=== PATIENT | male | born 1940 | race Caucasian/White ===

== ENCOUNTER 2021-06-01 10:20 | Day surgery (SDC) | payer OTHER ==
[2021-05-30 14:14] LABS: Potassium 4.9 mmol/L (3.5-5.1)
[2021-05-30 14:20] LABS: Absolute Lymphocytes (CBC) 15.2 K/uL (0.7-4.9); Hematocrit 31.7 % (39.6-49.0); Lymphocytes % 69.3 % (15.3-44.8); MPV 8.3 fL (7.6-11.3)
[2021-05-30 14:44] LABS: Blood Morphology Comment NOT SEEN (NOT SEEN); Platelet Estimate ADEQ
[2021-06-01] MEDS ORDERED: CEFAZOLIN SODIUM 1 GM/VIAL ONE (10:41)
[2021-06-01] MEDS ORDERED: NA CHLORIDE 0.9% 50 ML ONE (10:41)
[2021-06-01] MEDS ORDERED: NA CHLORIDE 0.9% 1,000 ML ONE (10:41)
[2021-06-01] MEDS ORDERED: BUPIVACAINE 0.25% PF 10 ML VIAL ONE (10:45)
[2021-06-01] MEDS ORDERED: CEFAZOLIN/SWI 2gm 2 GM/20 ML SYR ONE (10:58)
[2021-06-01] MEDS ORDERED: LIDOCAINE 1% W/EPI 1:100,000 10 ML VIAL ONE ×2 (11:08→12:09)
[2021-06-01] MEDS ORDERED: propofoL 200 MG/20 ML VIAL IV ONE ×3 (11:32→12:03)
[2021-06-01] MEDS ORDERED: MIDAZOLAM HCL 2 MG/2 ML INJ ONE (11:32)
[2021-06-01] MEDS ORDERED: LIDOCAINE 1% MPF 5 ML VIAL ONE (11:32)
[2021-06-01] MEDS ORDERED: FENTANYL CITR 100 MCG/2 ML ONE (11:32)
--- NOTE | 2021-06-01 12:40 | P.OP ---
Preoperative diagnosis: LEFT Forearm Skin Lesions x 2, RIGHT scalp, RIGHT Face Skin Lesions Postoperative diagnosis: LEFT Forearm Skin Lesions x 2, RIGHT scalp, RIGHT Face Skin Lesions Primary procedure: Wide Excision of LEFT Forearm Skin Lesions x 2, Secondary procedure: Shave biopsy of RIGHT scalp, RIGHT Face Skin Lesions Anesthesia: GETA + Local Estimated blood loss: < 10cc Specimen: LEFT forearm skin lesion x 2, RIGHT scalp, face skin lesions Findings: ~1.2cm + 1.0 cm L forearm skin lesion, 0.8cm facial, scalp skin lesion Complications: None Transferred to: Recovery Room Condition: Good
[2021-06-01 13:05] VITALS: O2SAT 100
[2021-06-01] MEDS ORDERED: HYDRALAZINE HCL 20 MG/ML VIAL ONE (13:10)
[2021-06-01 13:41] VITALS: BP 178/69; TEMP 97
--- NOTE | 2021-06-02 00:34 | OP ---
Date of Procedure: 06/01/2021 Surgeon: Crow Curry MD, Preoperative Diagnoses: Left forearm skin lesions x2, right scalp and right facial skin lesions. Postoperative Diagnoses: Left forearm skin lesions x2, right scalp and right facial skin lesions. Procedures Performed: 1.Wide local excision of left forearm skin lesions x2. 2.Shave biopsy of right scalp and right facial skin lesion, lateral to right canthus. Anesthesia: General endotracheal with local with 1% lidocaine with epinephrine. Estimated Blood Loss: Less than 10 cc. Specimens: Left forearm skin lesion x2, right scalp and right facial skin lesions. Findings: Approximately 1.2 cm left proximal forearm skin lesion, 1.0 cm left forearm distal skin le vivek, 0.8 cm facial and scalp skin lesions. Complications: None. Disposition: The patient was transferred to recovery room in good condition. Procedure In Detail: After informed consent was obtained, the patient was brought to the operating r oom and prepped and draped in the usual sterile fashion. After adequate anesthesia was achieved, an ellipse of skin was taken of greater than 1 cm circumferential margin around proximal and distal skin lesion and was marked with marking pen. A 15 blade was then used to dissect the proximal tissue fir st, circumferentially down to subcutaneous tissues. Electrocautery was used to dissect the planes an d achieve hemostasis. A marking stitch short superior and long lateral was placed on the proximal le ft forearm skin lesion. The skin lesion was then ligated from the underlying adipose tissue and sent off for pathologic examination. Hemostasis was achieved with electrocautery. At this point, the ar ea was copiously irrigated and closed with interrupted vertical mattress sutures with good apposition of the tissues with minimal tension. At this point, I made the similar elliptical incision around t he distal forearm, which was approximately 1 cm to 1.5 cm away from the previous proximal skin lesion leaving a slight dog-ear between them as a skin bridge. I dissected circumferentially down through subcutaneous tissues with a 15 blade. At this point, I placed a marking stitch short superior and lo ng lateral on the distal left forearm skin lesion as well. I then ligated the skin specimen from the underlying adipose tissue and sent off for pathologic examination. Hemostasis was once again achiev ed in the area. The area was copiously irrigated and closed with interrupted vertical mattress sutur es after undermining in a similar fashion at the proximal skin lesion with a minimal tension closure. At this point, sterile dressing was placed over top. I then turned my attention to the right scalp lesion and anesthetized it with 1% lidocaine and used a shave biopsy blade/dermal blade to shave thi s area and sent it off, which is approximately less than a cm in size, for pathologic examination. H emostasis was achieved with touch electrocautery on low setting and a sterile dressing placed over to p. I then turned my attention to the skin distal to the lateral canthus, approximately 1 cm distal t o th lateral canthus. A wheal was raised at this point and also with 1% lidocaine, a shave biopsy wa s performed into the dermal tissue only. At this point, this tissue was sent off for pathologic exam ination. It was also approximately less than 1 cm skin lesion. Hemostasis was achieved with electro cautery, once again by just touch electrocautery. The area was cleansed once again. A sterile dress ing was placed on top. The patient tolerated the procedure without any complication and transferred to PACU in good condition. All counts were correct at the end of the case. MARIA LUZ/ALISA Voice ID: [id number] Report ID: [id number]
== END 2021-06-01 14:23 | disposition home or self-care (01) ==
LOC: OR 10:20
PROVIDERS: ATTEND Surgery
PROC: 0JBH0ZZ Excision of Left Lower Arm Subcutaneous Tissue and Fascia, Open Approach (ICD-10-PCS; 2021-06-01)
PROC: 0JBH0ZZ Excision of Left Lower Arm Subcutaneous Tissue and Fascia, Open Approach (ICD-10-PCS; 2021-06-01)
PROC: 0JB10ZZ Excision of Face Subcutaneous Tissue and Fascia, Open Approach (ICD-10-PCS; principal; 2021-06-01 11:45)
PROC: 0JB00ZZ Excision of Scalp Subcutaneous Tissue and Fascia, Open Approach (ICD-10-PCS; 2021-06-01 11:45)
DX: D04.4 Carcinoma in situ of skin of scalp and neck (principal); C44.619 Basal cell carcinoma of skin of left upper limb, including shoulder; C44.310 Basal cell carcinoma of skin of unspecified parts of face; Z20.822 Contact with and (suspected) exposure to COVID-19
CPT/HCPCS: 85025; 80048; 36415; 82947 ×2; 88305; 99281; 11641; 11622; 11604; 11606; U0003; J0360; J2704 ×3; J2250; J3010; J0690; J7030

== ENCOUNTER 2021-06-01 19:55 | Emergency (ER) | payer OTHER ==
--- NOTE | 2021-06-01 20:47 | ER ---
Nurse's Notes [facility] Name: Boubacar Landin Age: 80 yrs Sex: Male : 1940 Arrival Date: 06/01/2021 Time: 19:57 Bed 15 Private MD: Diagnosis: Postop wound check Presentation: 06/01 20:07 Chief complaint: Patient states: States had a same day surgery today to remove some ll3 skin spots for biopsy, states dressing slid down arm and came off, want a new dressing applied. Coronavirus screen: Vaccine status: Patient reports receiving the 2nd dose of the covid vaccine. Ebola Screen: No symptoms or risks identified at this time. Initial Sepsis Screen: Does the patient meet any 2 criteria? No. Patient's initial sepsis screen is negative. Does the patient have a suspected source of infection? No. Patient's initial sepsis screen is negative. Risk Assessment: Do you want to hurt yourself or someone else? Patient reports no desire to harm self or others. Onset of symptoms was June 01, 2021 at 19:40. 20:07 Method Of Arrival: Ambulatory ll3 20:07 Acuity: HOWARD 4 ll3 Triage Assessment: 20:10 General: Appears uncomfortable, Behavior is calm, cooperative. Pain: Complains of pain ll3 in dorsal aspect of left forearm. Neuro: Level of Consciousness is awake, alert, obeys commands, Oriented to person, place, time, situation. Cardiovascular: Patient's skin is warm and dry. Respiratory: Respiratory effort is even, unlabored, Respiratory pattern is regular, symmetrical. Derm: Wound noted dorsal aspect of left forearm, forehead. Historical: - Allergies: 20:10 No Known Allergies; ll3 - PMHx: 20:10 Hypertensive disorder; Diabetes mellitus; Hypercholesterolemia; ll3 - PSHx: 20:10 Tonsillectomy; Coronary artery bypass graft; ll3 - Immunization history:: Client reports receiving the 2nd dose of the Covid vaccine. - Social history:: Smoking status: Patient/guardian denies using tobacco. Screenin:37 Abuse screen: Denies threats or abuse. Tuberculosis screening: No symptoms or risk sv1 factors identified. Fall Risk None identified. No fall in past 12 months (0 pts). No secondary diagnosis (0 pts). No IV (0 pts). Ambulatory Aid- Gait- Normal/Bed Rest/Wheelchair (0 pts) Mental Status- Oriented to own ability (0 pts). 20:40 Nutritional screening: No deficits noted. sv1 Assessment: 20:40 Reassessment: The patient has a biopsy wound that the dressing fell off. No active sv1 bleeding or drainage. No pain. A non adhering dressing and cynthia wrap was applied as per Provider order.. Vital Signs: 20:07 BP 195 / 80; Pulse 73; Resp 17; Temp 98.3(TE); Pulse Ox 100% on R/A; Weight 77.11 kg ll3 (R); Height 5 ft. 11 in. (180.34 cm) (R); Pain 3/10; 20:37 BP 180 / 80 RA Sitting (auto/reg); Pulse 72 MON; Resp 16 S; Temp 98.1(O); Pulse Ox 100% sv1 on R/A; Pain 0/10; 20:07 Body Mass Index 23.71 (77.11 kg, 180.34 cm) ll3 ED Course: 19:57 Patient arrived in ED. jj6 19:58 Bayron Larson MD is Attending Physician. kdr 20:10 Triage completed. ll3 20:10 Arm band placed on. ll3 20:37 Genaro Orellana, RN is Primary Nurse. sv1 20:37 Bed in low position. Call light in reach. Side rails up X 1. sv1 20:37 No provider procedures requiring assistance completed. Patient did not have IV access sv1 during this emergency room visit. Administered Medications: No medications were administered Outcome: 20:47 Discharge ordered by . kdr 20:55 Discharged to home sv1 20:55 Condition: good 20:55 Discharge instructions given to patient. 20:56 Patient left the ED. sv1 Signatures: Bayron Larson MD MD kdr Alejandra Amador j6 Tuyet Black RN RN 3 Genaro Orellana, ANA LUISA RN sv1 Corrections: (The following items were deleted from the chart) 20:13 20:10 PSHx: Coronary artery bypass graft; ll3 ll3
--- NOTE | 2021-06-01 20:47 | EDPHYS ---
Physician Documentation [facility] Name: Boubacar Landin Age: 80 yrs Sex: Male : 1940 Arrival Date: 06/01/2021 Time: 19:57 Bed 15 Private MD: ED Physician Bayron Larson HPI: 06/01 20:27 This 80 yrs old Male presents to ER via Ambulatory with complaints of Post Surgical kdr Bleeding, Post Surgical Pain. 20:27 Had 2 cancerous growth removed from his left forearm earlier today. This evening he had kdr the bandage loosening and there was some post procedure bleeding which is currently stopped. On the dressing removed, there did not appear to be significant amount of postop bleeding. Patient did not appear in any acute distress and the bleeding was controlled the wound was cleaned and redressed. Patient was discharged in good condition. Dr. Curry was notified of the patient's visit to the ED. Onset: The symptoms/episode began/occurred just prior to arrival. Severity of symptoms: At their worst the symptoms were mild in the emergency department the symptoms are unchanged. The patient has not experienced similar symptoms in the past. Patient had [address] Curry earlier today. Historical: - Allergies: 20:10 No Known Allergies; ll3 - PMHx: 20:10 Hypertensive disorder; Diabetes mellitus; Hypercholesterolemia; ll3 - PSHx: 20:10 Tonsillectomy; Coronary artery bypass graft; ll3 - Immunization history:: Client reports receiving the 2nd dose of the Covid vaccine. - Social history:: Smoking status: Patient/guardian denies using tobacco. ROS: 20:27 Constitutional: Negative for fever, chills, and weight loss. kdr 20:27 MS/extremity: Positive for Patient had a long incision over the left proximal lateral forearm.. Exam: 20:27 Musculoskeletal/extremity: As noted above there is a proximate 10 to 12 cm longitudinal kdr laceration with interrupted suture closure on the proximal lateral forearm. Bleeding is controlled. I was unable to express any additional blood or other fluids from the wounds. Patient tolerated this well. The wounds were redressed and an Benjie wrap was applied. Patient tolerated well. I notify Dr. Curry of the patient's visit to the ED and that he was going to be discharged with follow-up. Patient otherwise was stable. 23:55 Constitutional: This is a well developed, well nourished patient who is awake, alert, kdr and in no acute distress. Vital Signs: 20:07 BP 195 / 80; Pulse 73; Resp 17; Temp 98.3(TE); Pulse Ox 100% on R/A; Weight 77.11 kg ll3 (R); Height 5 ft. 11 in. (180.34 cm) (R); Pain 3/10; 20:37 BP 180 / 80 RA Sitting (auto/reg); Pulse 72 MON; Resp 16 S; Temp 98.1(O); Pulse Ox 100% sv1 on R/A; Pain 0/10; 20:07 Body Mass Index 23.71 (77.11 kg, 180.34 cm) ll3 MDM: 20:27 Data reviewed: vital signs, nurses notes. Counseling: I had a detailed discussion with kdr the patient and/or guardian regarding: the historical points, exam findings, and any diagnostic results supporting the discharge/admit diagnosis, the need for outpatient follow up. Physician consultation: Crow Curry MD regarding consult, patient's condition, outpatient follow-up, and will see patient in office, next week. 20:47 Patient medically screened. kdr Administered Medications: No medications were administered Disposition Summary: 06/01/21 20:47 Discharge Ordered Location: Home kdr Problem: new kdr Symptoms: have improved kdr Condition: Stable kdr Diagnosis - Postop wound check kdr Followup: kdr - With: Private Physician - When: 2 - 3 days - Reason: Wound Recheck, If symptoms return, Further diagnostic work-up, Recheck today's complaints, Continuance of care, Re-evaluation by your physician Discharge Instructions: - Discharge Summary Sheet kdr - How to Change Your Wound Dressing, [id number] kdr Forms: - Medication Reconciliation Form kdr - Thank You Letter kdr Signatures: Bayron Larson MD MD kdr Tuyet Black RN RN ll3 Corrections: (The following items were deleted from the chart) 20:13 20:10 PSHx: Coronary artery bypass graft; ll3 ll3
[2021-06-01 21:16] VITALS: O2SAT 100
[2021-06-01 21:18] VITALS: BP 180/80; TEMP 98.1
== END 2021-06-01 20:56 | disposition home or self-care (01) ==
LOC: ER 19:55
DX: Z48.01 Encounter for change or removal of surgical wound dressing (principal)
CPT/HCPCS: 99281

== ENCOUNTER 2021-07-02 07:57 | Day surgery (SDC) | payer OTHER ==
[2021-06-20 14:31] LABS: Absolute Lymphocytes (CBC) 14.8 K/uL (0.7-4.9); Hematocrit 26.4 % (39.6-49.0); MPV 7.8 fL (7.6-11.3); RBC Red Blood Cell Count 2.63 M/uL (4.33-5.43)
[2021-06-20 14:54] LABS: Potassium 4.2 mmol/L (3.5-5.1)
[2021-06-20 21:43] LABS: Blood Morphology Comment NOT SEEN (NOT SEEN); Platelet Estimate ADEQ; Smudge Cells PRESENT
[2021-07-02] MEDS ORDERED: LIDOCAINE 2% MPF 5 ML VIAL ONE (08:01)
[2021-07-02] MEDS ORDERED: FENTANYL CITR 100 MCG/2 ML ONE (08:01)
[2021-07-02] MEDS ORDERED: propofoL 200 MG/20 ML VIAL IV ONE (08:01)
[2021-07-02] MEDS ORDERED: MIDAZOLAM HCL 2 MG/2 ML INJ ONE (08:01)
[2021-07-02] MEDS ORDERED: ONDANSETRON 4 MG/2 ML VIAL ONE (08:06)
[2021-07-02] MEDS ORDERED: NA CHLORIDE 0.9% 1,000 ML ONE (08:30)
[2021-07-02] MEDS ORDERED: CEFAZOLIN/SWI 2gm 2 GM/20 ML SYR ONE (08:31)
[2021-07-02] MEDS ORDERED: BUPIVACAINE 0.25% PF 10 ML VIAL ONE (08:58)
[2021-07-02] MEDS ORDERED: LIDOCAINE 1% W/EPI 1:100,000 MDV 50 ML VIAL ONE (08:58)
[2021-07-02] MEDS ORDERED: LIDOCAINE 1% MPF 30 ML VIAL ONE (08:58)
--- NOTE | 2021-07-02 10:14 | P.OP ---
Preoperative diagnosis: LEFT Forearm Skin Cancer, Scalp Skin Cancer Postoperative diagnosis: LEFT Forearm Skin Cancer, Scalp Skin Cancer Primary procedure: Wide Re-Excision of LEFT forearm skin cancer Secondary procedure: Wide Re-Excision of RIGHT scalp skin lesion Anesthesia: IV Sedation + Local Estimated blood loss: < 5cc Specimen: Scalp skin lesion, proximal skin lesion, distal skin lesion Findings: skin cancer Complications: None Transferred to: Recovery Room Condition: Good
[2021-07-02 11:28] VITALS: BP 169/91; TEMP 97.8; O2SAT 98
--- NOTE | 2021-07-02 13:19 | OP ---
Date of Procedure: 07/02/2021 Surgeon: Crow Curry MD, Preoperative Diagnoses: 1.Left forearm skin cancer. 2.Scalp skin cancer. Postoperative Diagnoses: 1.Left forearm skin cancer. 2.Scalp skin cancer. Procedures Performed: 1.Wide re-excision of left forearm skin cancer. 2.Wide re-excision of right scalp skin lesion. Anesthesia: IV sedation plus local with 1% lidocaine with epinephrine. Estimated Blood Loss: Less than 5 cc. Specimen: Scalp skin lesion and proximal skin lesion as well as proximal forearm skin lesion and dis jose forearm skin lesion. Findings: Consistent with skin cancer. Complications: None. Disposition: The patient was transferred to recovery room in good condition. Procedure In Detail: After informed consent was obtained, the patient was brought to the operating r oom, prepped and draped in the usual sterile fashion after adequate anesthesia was achieved. I addre ssed the area on the right scalp. First, I took out approximately 0.5 cm ellipse of skin around an a bnormal appearing previously biopsied area using a scalpel down through subcutaneous tissues. I enco untered a scalp arterial vessel, which was ligated with suture which was 3-0 Vicryl suture in a simpl e [id number]-rl-pautt ligature with good hemostasis at this point. The area was copiously irrigated and then closed using interrupted 3-0 nylon suture and a sterile dressing placed over top. Good hemostas is was achieved. I then turned my attention to the left forearm skin lesion. There was a proximal s egment and distal segment, both together encompassing approximately 8 cm x 2 cm. I have 2 elliptical incisions around this area to demarcate the previous proximal and distal skin lesions. There were s ome abnormal skin appearing lesions within the distal aspect as well as the proximal aspect. As such , I removed these with after appropriately anesthetizing the skin with 1% lidocaine down to subcutane ous tissues. I removed the entire thickness of dermis down to subcutaneous fat using a combination o f sharp dissection and electrocautery. Both of these skin lesions were marked as a proximal and dist al with short stitch proximal and long stitch lateral, and these 2 specimen were sent off for patholo gic examination. The wound was then copiously irrigated and hemostasis was achieved with electrocaut damir. No suture ligature was required. After the area was cleansed, a sterile damp to dry dressing w as placed and the wound would remain open and we will plan for granulation and likely skin grafting i n the future per our previous discussion with the patient as the patient did not have significant cecilio unt of tissues for flap closure at this time. After the wound was wrapped appropriately, a sterile d ressing was placed over the top with Kerlix and Benjie wrap. The patient tolerated the procedure well w ithout evidence of complication and transferred to PACU in good condition. All counts were correct a t the end of the case. MARIA LUZ/ALISA Voice ID: [id number] Report ID: [id number]
== END 2021-07-02 11:20 | disposition home or self-care (01) ==
LOC: OR 07:57
PROVIDERS: ATTEND Surgery
PROC: 0JB00ZZ Excision of Scalp Subcutaneous Tissue and Fascia, Open Approach (ICD-10-PCS; 2021-07-02)
PROC: 0JBH0ZZ Excision of Left Lower Arm Subcutaneous Tissue and Fascia, Open Approach (ICD-10-PCS; principal; 2021-07-02 09:15)
DX: C44.619 Basal cell carcinoma of skin of left upper limb, including shoulder (principal); C44.41 Basal cell carcinoma of skin of scalp and neck; Z20.822 Contact with and (suspected) exposure to COVID-19
CPT/HCPCS: 85025; 80048; 36415; 82947 ×2; 88305; 11606; 11622; 11604; U0003 ×2; J2704; J2250; J3010; J0690; J7030; J2405

== ENCOUNTER 2022-01-31 09:51 | Day surgery (SDC) | payer OTHER ==
[2022-01-31 10:45] LABS: Hematocrit 23.3 % (39.6-49.0)
[2022-01-31] MEDS ORDERED: EPOETIN ALFA-EPBX 10,000 UNIT/ML VIAL ONE (10:52)
[2022-01-31 12:30] VITALS: BP 175/65; TEMP 97.5; O2SAT 18; BMI 25.1
== END 2022-01-31 11:00 | disposition home or self-care (01) ==
LOC: DS 09:51
PROVIDERS: ATTEND Internal Medicine Nephrology
DX: N18.4 Chronic kidney disease, stage 4 (severe) (principal); D63.1 Anemia in chronic kidney disease
CPT/HCPCS: 36415; 85018; 85014; 96372; Q5106

== ENCOUNTER 2022-02-28 09:22 | Day surgery (SDC) | payer OTHER ==
[2022-02-28 09:42] VITALS: BP 170/68; TEMP 98.6; O2SAT 100; BMI 25.1
[2022-02-28 09:55] LABS: Hematocrit 26.2 % (39.6-49.0)
[2022-02-28] MEDS ORDERED: EPOETIN ALFA-EPBX 10,000 UNIT/ML VIAL ONE (10:04)
== END 2022-02-28 10:25 | disposition home or self-care (01) ==
LOC: DS 09:22
PROVIDERS: ATTEND Internal Medicine Nephrology
DX: N18.4 Chronic kidney disease, stage 4 (severe) (principal); D63.1 Anemia in chronic kidney disease
CPT/HCPCS: 36415; 85018; 85014; 96372; Q5106

== ENCOUNTER 2022-03-28 09:56 | Day surgery (SDC) | payer OTHER ==
[2022-03-28 10:28] VITALS: BP 168/55; TEMP 98.1; O2SAT 100; BMI 23.7
[2022-03-28 11:12] LABS: Hematocrit 25.6 % (39.6-49.0)
[2022-03-28] MEDS ORDERED: EPOETIN ALFA-EPBX 10,000 UNIT/ML VIAL ONE (11:20)
== END 2022-03-28 11:29 | disposition home or self-care (01) ==
LOC: DS 09:56
PROVIDERS: ATTEND Internal Medicine Nephrology
DX: N18.4 Chronic kidney disease, stage 4 (severe) (principal); D63.1 Anemia in chronic kidney disease
CPT/HCPCS: 36415; 85018; 85014; 96372; Q5106

== ENCOUNTER 2022-04-25 10:04 | Day surgery (SDC) | payer OTHER ==
[2022-04-25 10:38] LABS: Hematocrit 26.7 % (39.6-49.0)
[2022-04-25] MEDS ORDERED: EPOETIN ALFA-EPBX 10,000 UNIT/ML VIAL ONE (10:55)
[2022-04-25 12:49] VITALS: BP 169/62; TEMP 98.2; O2SAT 100; BMI 25.1
== END 2022-04-25 11:05 | disposition home or self-care (01) ==
LOC: DS 10:04
PROVIDERS: ATTEND Internal Medicine Nephrology
DX: N18.4 Chronic kidney disease, stage 4 (severe) (principal); D63.1 Anemia in chronic kidney disease
CPT/HCPCS: 36415; 85018; 85014; 96372; Q5106

== ENCOUNTER 2022-11-04 11:21 | Inpatient (IN) | payer OTHER ==
[2022-11-04] MEDS ORDERED: NA CHLORIDE 0.9% 1,000 ML ONE ×2 (11:58→18:36)
[2022-11-04 12:12] LABS: Absolute Lymphocytes (CBC) 15.5 K/uL (0.7-4.9); Hematocrit 35.1 % (39.6-49.0); Lymphocytes % 74.4 % (15.3-44.8); MPV 8.4 fL (7.6-11.3); RBC Red Blood Cell Count 3.66 M/uL (4.33-5.43)
[2022-11-04 12:27] LABS: Potassium 4.7 mEq/L (3.5-5.1)
--- NOTE | 2022-11-04 12:27 | RAD REPORT ---
EXAM DESCRIPTION: RAD - Chest Single View - 11/04/2022 12:00 pm CLINICAL HISTORY: MALAISE Chest pain. COMPARISON: Abdomen 1 View (KUB) dated 02/11/2019; CHEST SINGLE VIEW dated 05/04/2014 FINDINGS: Portable technique limits examination quality. The lungs are emphysematous but grossly clear. The heart is normal in size. No displaced fractures.St ernotomy wires. IMPRESSION: No acute intrathoracic process suspected. COPD.
[2022-11-04 12:47] LABS: SARS-CoV-2 Antigen Rapid Res Negative (Negative)
[2022-11-04 12:48] LABS: White Blood Cell Scan DIFF (OK)
[2022-11-04 12:49] LABS: Blood Morphology Comment NOT SEEN (NOT SEEN); Platelet Estimate ADEQ
--- NOTE | 2022-11-04 15:12 | EDPHYS ---
Physician Documentation [facility] Name: Boubacar Landin Age: 82 yrs Sex: Male : 1940 Arrival Date: 11/04/2022 Time: 11:21 Bed 15 Private MD: ED Physician Mac Jasso HPI: 11/04 11:50 This 82 yrs old Male presents to ER via Wheelchair with complaints of Dizziness, rn Weakness. 11:50 The patient presents with dizziness, generalized weakness, lightheadedness. Onset: The rn symptoms/episode began/occurred yesterday. Modifying factors: The symptoms are alleviated by nothing, the symptoms are aggravated by standing up, changing position. Severity of symptoms: At their worst the symptoms were mild in the emergency department the symptoms are unchanged. The patient has not experienced similar symptoms in the past. The patient has not recently seen a physician. Pt reports generalized weakness and dizziness, began yesterday, not eating much. No fever/chills/cough/sob/chest pain/abd pain/vomiting/diarrhea. No medication change. Has diabetes but does not check his glucose. No trauma or injury. . Historical: - Allergies: 11:35 No Known Allergies; ld1 - PMHx: 11:35 diabetes mellitus; Hypercholesterolemia; Hypertensive disorder; ld1 - PSHx: 11:35 Coronary artery bypass graft; Tonsillectomy; ld1 - Immunization history:: Adult Immunizations up to date. - Social history:: Smoking status: Patient denies any tobacco usage or history of. Patient/guardian denies using alcohol. - Family history:: not pertinent. - Hospitalizations: : No recent hospitalization is reported. ROS: 11:50 Constitutional: Negative for fever, chills, and weight loss, Eyes: Negative for injury, rn pain, redness, and discharge, Neck: Negative for injury, pain, and swelling, Cardiovascular: Negative for chest pain, palpitations, and edema, Respiratory: Negative for shortness of breath, cough, wheezing, and pleuritic chest pain, Abdomen/GI: Negative for abdominal pain, nausea, vomiting, diarrhea, and constipation, Back: Negative for injury and pain, MS/Extremity: Negative for injury and deformity, Skin: Negative for injury, rash, and discoloration, Neuro: Negative for headache,numbness, tingling, and seizure. Exam: 11:50 Constitutional: This is a well developed, well nourished patient who is awake, alert, rn and in no acute distress. ENT: dry MM Cardiovascular: Regular rate and rhythm. No pulse deficits. Respiratory: No increased work of breathing, no retractions or nasal flaring. Abdomen/GI: Soft, non-tender Skin: Warm, dry MS/ Extremity: Pulses equal, no cyanosis. Neuro: Awake and alert, GCS 15, oriented to person, place, and situation. Cranial nerves II-XII grossly intact. Motor strength 4/5 in all extremities. Sensory grossly intact. Vital Signs: 11:33 BP 153 / 68; Pulse 61; Resp 18; Pulse Ox 100% on R/A; Weight 68.04 kg; Height 5 ft. 11 ld1 in. ; Pain 0/10; 11:51 Temp 97.6(TE); ld1 12:09 BP 157 / 70; Pulse 58; Resp 16 S; Pulse Ox 100% on R/A; kc6 13:05 BP 158 / 81; Pulse 49; Resp 17 S; Pulse Ox 98% on R/A; kc6 14:17 BP 148 / 62; Pulse 58; Resp 17 S; Pulse Ox 95% on R/A; kc6 15:19 BP 149 / 71; Pulse 55; Resp 15 S; Pulse Ox 100% on R/A; kc6 16:28 BP 144 / 61; Pulse 52; Resp 18 S; Pulse Ox 100% on R/A; kc6 17:20 BP 161 / 71; Pulse 52; Resp 17 S; Pulse Ox 100% on R/A; kc6 11:33 Body Mass Index 20.92 (68.04 kg, 180.34 cm) ld1 11:33 Pain Scale: Adult ld1 NIH Stroke Scale Scores: 12:07 NIHSS Score: 0 kc6 MDM: 11:30 Patient medically screened. rn 15:11 Differential diagnosis: generalized weakness, hypovolemia, idiopathic dizziness, acute rn kidney failure/injury, UTI. Data reviewed: vital signs, nurses notes, lab test result(s), radiologic studies, plain films, and as a result, I will admit patient. Consideration of Admission/Observation Patient was admitted/placed on observation. Escalation of care including admission/observation considered. Counseling: I had a detailed discussion with the patient and/or guardian regarding: the historical points, exam findings, and any diagnostic results supporting the discharge/admit diagnosis, lab results, radiology results, the need for further work-up and treatment in the hospital. Response to treatment: the patient's symptoms have mildly improved after treatment, and as a result, I will admit patient. 11/04 11:42 Order name: CBC with Diff; Complete Time: 14:43 rn 11/04 11:42 Order name: Basic Metabolic Panel; Complete Time: 12:31 rn 11/04 11:42 Order name: Urinalysis w/ reflexes; Complete Time: 16:57 rn 11/04 11:42 Order name: SARS RAPID; Complete Time: 14:43 rn 11/04 11:42 Order name: Flu; Complete Time: 14:43 rn 11/04 12:08 Order name: Glucose, Ancillary Testing; Complete Time: 12:31 [facility] 11/04 12:18 Order name: CBC Smear Scan; Complete Time: 14:43 [facility] 11/04 12:49 Order name: Manual Differential; Complete Time: 14:43 [facility] 11/04 11:42 Order name: XRAY Chest (1 view); Complete Time: 12:31 rn 11/04 11:42 Order name: EKG; Complete Time: 11:43 rn 11/04 16:39 Order name: Diet Regular; Complete Time: 16:40 kc6 11/04 11:42 Order name: IV Start; Complete Time: 12: rn 11/04 11:42 Order name: EKG - Nurse/Tech; Complete Time: 12: 11/04 11:42 Order name: Glucose Level; Complete Time: 12: rn 11/04 15:38 Order name: Sy; Complete Time: 16:24 rn Administered Medications: 12:07 Drug: NS 0.9% IV 1000 ml Route: IV; Rate: 1000 ml; Site: right antecubital; kc6 13:18 Follow up: Response: No adverse reaction; IV Status: Completed infusion; IV Intake: kc6 1000ml Disposition Summary: 11/04/22 15:12 Hospitalization Ordered Hospitalization Status: Inpatient Admission rn Provider: Roland Perez rn Condition: Stable rn Problem: new rn Symptoms: have improved rn Bed/Room Type: Standard rn Location: Telemetry/MedSurg (Inpatient)(11/04/22 19:09) cg Room Assignment: [facility](11/04/22 19:09) cg Diagnosis - Acute kidney failure, unspecified rn - Muscle weakness (generalized) rn Forms: - Medication Reconciliation Form rn - SBAR form rn NIH Stroke Scale - NIH Stroke Score Date: 11/04/2022 Time: 12:07 Total Score = 0 10. Dysarthria (speech clarity - read or repeat words) - 0(Normal) 11. Extinction and Inattention (visual/tactile/auditory/spatial/personal) - 0(No abnormality) 1a. Level of Consciousness (LOC) - 0(Alert) 1b. Level of Consciousness (LOC) (Month \T\ Age) - 0(Both) 1c. LOC Commands (Open \T\ Closes Eyes/Development Professional) - 0(Both) 2. Best Gaze (Lateral Gaze Paresis) - 0(Normal) 3. Visual Field Loss - 0(No visual loss) 4. Facial Palsy - 0(Normal) 5a. Left Arm: Motor (10-second hold) - 0(No drift) 5b. Right Arm: Motor (10-second hold) - 0(No drift) 6a. Left Leg: Motor (5-second hold - always test supine) - 0(No drift) 6b. Right Leg: Motor (5-second hold - always test supine) - 0(No drift) 7. Limb Ataxia (finger/nose \T\ heel/molina - test with eyes open) - 0(Absent) 8. Sensory Loss (pinprick arms/legs/face) - 0(Normal) 9. Best Language: Aphasia (description/naming/reading) - 0(No aphasia) Initials: kc6 Signatures: Dispatcher [employer] EDMS Alvina Chery Roman, MD MD rn Garcia, Cindy, RN RN cg Sims, Lauren, RN RN aida1 Thi Lynn RN RN kc6 Corrections: (The following items were deleted from the chart) 17:21 15:12 Telemetry/MedSurg (Inpatient) sydney robles 17: 15:12 sydney robles 19: 17:21 [facility] ER HOLD bd cg 19: 17:21 ERHOLD- bd cg
--- NOTE | 2022-11-04 15:12 | ER ---
Nurse's Notes [facility] Name: Boubacar Ladnin Age: 82 yrs Sex: Male : 1940 Arrival Date: 11/04/2022 Time: 11:21 Bed 15 Private MD: Diagnosis: Acute kidney failure, unspecified;Muscle weakness (generalized) Presentation: 11/04 11:33 Chief complaint: Patient states: Dizzy and weak since this morning. Coronavirus screen: ld1 At this time, the client does not indicate any symptoms associated with coronavirus-19. Ebola Screen: No symptoms or risks identified at this time. Initial Sepsis Screen: Does the patient meet any 2 criteria? No. Patient's initial sepsis screen is negative. Does the patient have a suspected source of infection? No. Patient's initial sepsis screen is negative. Risk Assessment: Do you want to hurt yourself or someone else? Patient reports no desire to harm self or others. Onset of symptoms was November 04, 2022. 11:33 Method Of Arrival: Wheelchair ld1 11:33 Acuity: HOWARD 3 ld1 Triage Assessment: 11:35 The onset of the patients symptoms was. General: Appears in no apparent distress. ld1 comfortable, Behavior is calm, cooperative, appropriate for age. Pain: Denies pain. EENT: No signs and/or symptoms were reported regarding the EENT system. Neuro: Level of Consciousness is awake, alert, obeys commands, Oriented to person, place, time, situation, Reports dizziness, weakness. Cardiovascular: Capillary refill < 3 seconds Patient's skin is warm and dry. Respiratory: Airway is patent Respiratory effort is even, unlabored. GI: Abdomen is flat, non-distended. : No signs and/or symptoms were reported regarding the genitourinary system. Derm: No signs and/or symptoms reported regarding the dermatologic system. Musculoskeletal: No signs and/or symptoms reported regarding the musculoskeletal system. Historical: - Allergies: :35 No Known Allergies; ld1 - PMHx: :35 diabetes mellitus; Hypercholesterolemia; Hypertensive disorder; ld1 - PSHx: 11:35 Coronary artery bypass graft; Tonsillectomy; ld1 - Immunization history:: Adult Immunizations up to date. - Social history:: Smoking status: Patient denies any tobacco usage or history of. Patient/guardian denies using alcohol. - Family history:: not pertinent. - Hospitalizations: : No recent hospitalization is reported. Screenin:07 [facility] ED Fall Risk Assessment (Adult) History of falling in the last 3 months, kc6 including since admission No falls in past 3 months (0 pts) Confusion or Disorientation No (0 pts) Intoxicated or Sedated No (0 pts) Impaired Gait No (0 pts) Mobility Assist Device Used Yes (1 pt) Altered Elimination No (0 pt) Score/Fall Risk Level 0 - 2 = Low Risk. Abuse screen: Denies threats or abuse. Denies injuries from another. Nutritional screening: No deficits noted. Tuberculosis screening: No symptoms or risk factors identified. Assessment: 12:07 VAN Scoring: Arm Drift: Patients demonstrates NO arm weakness. Patient is VAN Negative. kc6 Visual Disturbance: No visual disturbance noted. Aphasia: No aphasia noted. Neglect: No neglect noted. 12:08 General: Appears in no apparent distress. comfortable, Behavior is calm, cooperative, kc6 appropriate for age. Pain: Denies pain. Neuro: Pineda Agitation-Sedation Scale (RASS): 0 - Alert and Calm Level of Consciousness is awake, alert, obeys commands, Oriented to person, place, time, situation, Appropriate for age Reports dizziness, weakness. Cardiovascular: Denies chest pain, shortness of breath, Heart tones S1 S2 present Capillary refill < 3 seconds Rhythm is atrial flutter Chest pain is denied. Respiratory: Airway is patent Trachea midline Respiratory effort is even, unlabored, Respiratory pattern is regular, symmetrical. GI: No signs and/or symptoms were reported involving the gastrointestinal system. : No signs and/or symptoms were reported regarding the genitourinary system. EENT: No signs and/or symptoms were reported regarding the EENT system. Derm: No signs and/or symptoms reported regarding the dermatologic system. Skin is intact, is healthy with good turgor, Skin is pink, warm \T\ dry. Musculoskeletal: No signs and/or symptoms reported regarding the musculoskeletal system. Circulation, motion, and sensation intact. Capillary refill < 3 seconds, Range of motion: intact in all extremities. 13:04 Reassessment: Patient appears in no apparent distress at this time. No changes from kc6 previously documented assessment. Patient and/or family updated on plan of care and expected duration. Pain level reassessed. Patient is alert, oriented x 3, equal unlabored respirations, skin warm/dry/pink. 14:17 Reassessment: Patient appears in no apparent distress at this time. No changes from 6 previously documented assessment. Patient and/or family updated on plan of care and expected duration. Pain level reassessed. Patient is alert, oriented x 3, equal unlabored respirations, skin warm/dry/pink. 15:19 Reassessment: Patient appears in no apparent distress at this time. No changes from kc6 previously documented assessment. Patient and/or family updated on plan of care and expected duration. Pain level reassessed. Patient is alert, oriented x 3, equal unlabored respirations, skin warm/dry/pink. 16:28 Reassessment: Patient appears in no apparent distress at this time. No changes from kc6 previously documented assessment. Patient and/or family updated on plan of care and expected duration. Pain level reassessed. Patient is alert, oriented x 3, equal unlabored respirations, skin warm/dry/pink. 17:20 Reassessment: Patient appears in no apparent distress at this time. No changes from kc6 previously documented assessment. Patient and/or family updated on plan of care and expected duration. Pain level reassessed. Patient is alert, oriented x 3, equal unlabored respirations, skin warm/dry/pink. 18:20 Reassessment: Patient appears in no apparent distress at this time. No changes from kc6 previously documented assessment. Patient and/or family updated on plan of care and expected duration. Pain level reassessed. Patient is alert, oriented x 3, equal unlabored respirations, skin warm/dry/pink. 18:30 Reassessment: slavador d/c per Dr. Zelaya. 6 Vital Signs: 11:33 BP 153 / 68; Pulse 61; Resp 18; Pulse Ox 100% on R/A; Weight 68.04 kg; Height 5 ft. 11 ld1 in. ; Pain 0/10; 11:51 Temp 97.6(TE); ld1 12:09 BP 157 / 70; Pulse 58; Resp 16 S; Pulse Ox 100% on R/A; kc6 13:05 BP 158 / 81; Pulse 49; Resp 17 S; Pulse Ox 98% on R/A; kc6 14:17 BP 148 / 62; Pulse 58; Resp 17 S; Pulse Ox 95% on R/A; kc6 15:19 BP 149 / 71; Pulse 55; Resp 15 S; Pulse Ox 100% on R/A; kc6 16:28 BP 144 / 61; Pulse 52; Resp 18 S; Pulse Ox 100% on R/A; kc6 17:20 BP 161 / 71; Pulse 52; Resp 17 S; Pulse Ox 100% on R/A; kc6 11:33 Body Mass Index 20.92 (68.04 kg, 180.34 cm) ld1 11:33 Pain Scale: Adult ld1 NIH Stroke Scale Scores: 12:07 NIHSS Score: 0 kc6 ED Course: 11:23 Patient arrived in ED. rg4 11:30 Mac Jasso MD is Attending Physician. rn 11:34 Triage completed. ld1 11:35 Arm band placed on right wrist. ld1 11:47 Thi Lynn RN is Primary Nurse. kc6 12:02 XRAY Chest (1 view) In Process Unspecified. EDMS 12:07 Patient has correct armband on for positive identification. Placed in gown. Bed in low kc6 position. Call light in reach. Side rails up X2. Adult w/ patient. 12:07 Inserted saline lock: 20 gauge in right antecubital area, using aseptic technique. kc6 Blood collected. 12:08 EKG done, by ED staff, reviewed by Mac Jasso MD. em1 15:11 Roland Perez MD is Hospitalizing Provider. rn 16:20 Sy cath inserted, using sterile technique, 16 Fr., by lehr attendant, balloon inflated, to kc6 gravity drainage, clamped. urine specimen collected. Patient tolerated well. 19:39 No provider procedures requiring assistance completed. Patient admitted, IV remains in ll3 place. Administered Medications: 12:07 Drug: NS 0.9% IV 1000 ml Route: IV; Rate: 1000 ml; Site: right antecubital; kc6 13:18 Follow up: Response: No adverse reaction; IV Status: Completed infusion; IV Intake: kc6 1000ml Medication: 19:39 VIS not applicable for this client. ll3 Intake: 13:18 IV: 1000ml; Total: 1000ml. kc6 Outcome: 15:12 Decision to Hospitalize by Provider. rn 19:39 Admitted to Tele accompanied by tech, via wheelchair, room 429, with chart, Report ll3 called to ANA LUISA Chiang 19:39 Condition: stable 19:39 Discharge instructions given to patient, Instructed on the need for admit, Demonstrated understanding of instructions. 20:34 Patient left the ED. ll3 NIH Stroke Scale - NIH Stroke Score Date: 11/04/2022 Time: 12:07 Total Score = 0 10. Dysarthria (speech clarity - read or repeat words) - 0(Normal) 11. Extinction and Inattention (visual/tactile/auditory/spatial/personal) - 0(No abnormality) 1a. Level of Consciousness (LOC) - 0(Alert) 1b. Level of Consciousness (LOC) (Month \T\ Age) - 0(Both) 1c. LOC Commands (Open \T\ Closes Eyes/Block Machine Operator) - 0(Both) 2. Best Gaze (Lateral Gaze Paresis) - 0(Normal) 3. Visual Field Loss - 0(No visual loss) 4. Facial Palsy - 0(Normal) 5a. Left Arm: Motor (10-second hold) - 0(No drift) 5b. Right Arm: Motor (10-second hold) - 0(No drift) 6a. Left Leg: Motor (5-second hold - always test supine) - 0(No drift) 6b. Right Leg: Motor (5-second hold - always test supine) - 0(No drift) 7. Limb Ataxia (finger/nose \T\ heel/molina - test with eyes open) - 0(Absent) 8. Sensory Loss (pinprick arms/legs/face) - 0(Normal) 9. Best Language: Aphasia (description/naming/reading) - 0(No aphasia) Initials: kc6 Signatures: Dispatcher [employer] EDMS Mac Jasso MD MD rn Martinez, Eric em1 Garcia, Rubi rg4 Tia Paul RN RN ld1 Tuyet Black RN RN ll3 Thi Lynn RN RN kc6
[2022-11-04 16:50] LABS: Specific Gravity 1.011 (1.005-1.030); Urine Bacteria None Seen /HPF (<20); Urine Bilirubin NEGATIVE (Negative); Urine Blood Trace (Negative); Urine Clarity Turbid (Clear); Urine Color Light-Yellow (Yellow); Urine Glucose NEGATIVE (Negative); Urine Protein 2+ (Negative); Urine RBC <5 /HPF (None Seen); Urine Urobilinogen Normal (Normal); Urine pH 5.5 (5.0-7.0)
[2022-11-04] MEDS ORDERED: ONDANSETRON 4 MG/2 ML VIAL IV PRN (18:03)
[2022-11-04] MEDS ORDERED: ACETAMINOPHEN 500 MG TAB PO PRN (18:03)
[2022-11-04] MEDS ORDERED: NA CHLORIDE 0.9% 1,000 ML IV SCH (18:03)
--- NOTE | 2022-11-04 21:25 | P.HP ---
Certification for Inpatient Patient will require the following post-hospital care: [facility]fp Practitioner: I am a practitioner with admitting privileges, knowledge of patient current condition, hospital course, and medical plan of care. Services: Services provided to patient in accordance with Admission requirements found in Title 42 Section 412.3 of the Code of Federal Regulations Patient History Date of Service: 11/04/22 Reason for admission: WEAK, FATIGUED, NOT ABLE TO WALK History of Present Illness: MR DEL VALLE HAS HISTORY OF DIASTOLIC CHF, HTN, A FIB AND DM. HE ALSO HAS LAB PICTURE OF CLL BUT WITH BORDERLINE LYMPHCYTOSIS AND HIS AGE HE DOES NOT WANT ANY FURTHER EVAL AND I UNDERSTAND. HE THIS AM GOT WEAK AND WAS NOT ABLE TO WALK. HE HAS NO CHEST PAIN, FEVER OR DYSPNEA. Allergies No Known Drug Allergies Allergy (Verified 02/28/22 09:39) Unknown Home medications list reviewed: Yes Home Medications: Allopurinol 100 mg PO BID 05/30/21 Apixaban [Eliquis] 2.5 mg PO BID 05/30/21 Carvedilol [Coreg] 12.5 mg PO BID 05/30/21 Digoxin [Lanoxin] 0.125 mg PO DAILY 05/30/21 Glimepiride [Amaryl] 2 mg PO DAILY 05/30/21 Multivitamin 1 each PO DAILY 05/30/21 Ramipril [Altace] 10 mg PO BID 05/30/21 Simvastatin 40 mg PO BEDTIME 05/30/21 Hydralazine/Hydrochlorothiazid [Hydra-Zide 50-50 Capsule] 1 each PO 04/25/22 Torsemide [Demadex*] 25 mg PO DAILY 04/25/22 - Past Medical/Surgical History Diabetic: Yes -: HTN -: CABG - Social History Alcohol use: No CD- Drugs: No Review of Systems 10-point ROS is otherwise unremarkable General: Weakness, Malaise Respiratory: As per HPI Physical Examination - Vital Signs Temperature: 97.6 F Blood Pressure: 149/71 Pulse: 55 Respirations: 15 Pulse Ox (%): 99 - Physical Exam General: Oriented x3, Mild distress HEENT: Atraumatic, PERRLA, Mucous membr. moist/pink, EOMI, Sclerae nonicteric Neck: Supple, 2+ carotid pulse no bruit, No LAD, Without JVD or thyroid abnormality Respiratory: Clear to auscultation bilaterally, Normal air movement Cardiovascular: Regular rate/rhythm, Normal S1 S2 Gastrointestinal: Normal bowel sounds, No tenderness Musculoskeletal: No tenderness Integumentary: No rashes Neurological: Normal gait, Normal speech, Normal strength at 5/5 x4 extr, Normal tone, Normal affect Lymphatics: No axilla or inguinal lymphadenopathy - Studies Laboratory Data (last 24 hrs) 11/04/22 12:03: Sodium 136, Potassium 4.7, BUN 69 H, Creatinine 3.23 H, Glucose 83 11/04/22 12:03: WBC 20.80 H, Hgb 11.4 L, Hct 35.1 L, Plt Count 286 Microbiology Data (last 24 hrs): 11/04/22 12:03 Nasopharnyx Influenza Type A Antigen Screen - Final 11/04/22 12:03 Nasopharnyx Influenza Type B Antigen Screen - Final Assessment and Plan - Problems (Diagnosis) (1) General weakness Current Visit: Yes Status: Acute Plan: HE IS DECONDITIONED BALANCE BETWEEN AKD AND CHF IS VERY FINE. HE IS SMALL DOSE OF DIURETIC TO KEEP FLUID OFF LUNGS BUT THAT AT TIMES PUSHED HIM INTO DEHYDRATION. I WILL HOLD DIURETIC AVOID IV FLUIDS DO PT REFER HIM TO SNF. (2) Acute on chronic renal failure Current Visit: Yes Status: Chronic Qualifiers: Chronic kidney disease stage: stage 4 (severe) (3) A-fib Current Visit: Yes Status: Chronic Plan: CONT ELIQUIS RATE CONTROLLED. Qualifiers: Atrial fibrillation type: longstanding persistent Qualified Code(s): I48.11 - Longstanding persistent atrial fibrillation (4) CLL (chronic lymphocytic leukemia) Current Visit: Yes Status: Chronic Plan: HIS BASLINE LEUKOCYTOSIS IS ABOUT 20K. THERE ARE NO CHANGES AND NO NEED OF BONE MARROW BIOPSY HIS OTHER PROBLEMS ARE MUCH MORE LIFE THREATENING THAN THIS. (5) Diabetes mellitus due to underlying condition with chronic kidney disease on chronic dialysis Current Visit: Yes Status: Acute (6) Debilitated Current Visit: Yes Status: Chronic Plan: I HAVE TALKED TO HIM ABOUT FACILITY LIKE ASSISTED LIVING THAN HOME FOR A WHILE. HE UNDERSTANDS. DAUGHTER IS AT BEDSIDE AND SHE LIVES IN [place]. SHE UNDERSTANDS. - Advance Directives Does patient have a Living Will: No Does patient have a Durable POA for Healthcare: No
[2022-11-05 03:33] VITALS: BMI 20.9
[2022-11-05 04:04] LABS: Absolute Lymphocytes (CBC) 11.5 K/uL (0.7-4.9); Hematocrit 27.5 % (39.6-49.0); MCV 100.2 fL (80-100); MPV 8.7 fL (7.6-11.3); RBC Red Blood Cell Count 2.74 M/uL (4.33-5.43)
[2022-11-05 04:20] LABS: Lymphocytes % 68.7 % (15.3-44.8)
[2022-11-05 04:24] LABS: Potassium 4.2 mEq/L (3.5-5.1)
--- NOTE | 2022-11-05 14:55 | EKG ---
Test Date: 2022-11-04 Test Time: 12:43:07 Corporate Pilot: HERNAN MEASUREMENT RESULTS: Intervals: Rate: 69 NC: 194 QRSD: 162 QT: 548 QTc: 587 [place]: P: NC: 194 QRS: -68 T: 108 INTERPRETIVE STATEMENTS: Sinus rhythm with premature supraventricular complexes with occasional premature ventricular complexes and fusion complexes Left axis deviation Left bundle branch block Abnormal ECG Compared to ECG 11/04/2022 12:00:24 Atrial premature complex(es) now present Fusion complex(es) now present Left bundle-branch block now present Atrial flutter no longer present Electronically Signed On 11-05-22 14:54:23 CDT by Yusuf Gayle
--- NOTE | 2022-11-05 14:55 | EKG ---
Test Date: 2022-11-04 Test Time: 12:00:24 Supervisor Photocomposition: HERNAN MEASUREMENT RESULTS: Intervals: Rate: 117 VA: QRSD: 156 QT: 452 QTc: 630 [place]: P: 208 VA: QRS: -56 T: 143 INTERPRETIVE STATEMENTS: Atrial flutter with variable AV block with premature ventricular or aberrantly conducted complexes Left axis deviation Nonspecific intraventricular block Abnormal ECG Compared to ECG 05/05/2014 07:11:39 Ventricular premature complex(es) now present Left-axis deviation now present Sinus bradycardia no longer present Atrial premature complex(es) no longer present Incomplete right bundle-branch block no longer present Myocardial infarct finding no longer present Electronically Signed On 11-05-22 14:54:37 CDT by Yusuf Gayle
--- NOTE | 2022-11-05 15:51 | P.PN ---
Subjective Date of Service: 11/05/22 Chief Complaint: WEAK, FATIGUED, NOT ABLE TO WALK Physical Examination - Vital Signs Temperature: 97.9 F Blood Pressure: 141/63 Pulse: 52 Respirations: 16 Pulse Ox (%): 98 - Studies Microbiology Data (last 24 hrs): 11/04/22 12:03 Nasopharnyx Influenza Type A Antigen Screen - Final 11/04/22 12:03 Nasopharnyx Influenza Type B Antigen Screen - Final
--- NOTE | 2022-11-05 15:52 | P.CNS ---
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 He is referred to nephrology for LISSA. Serum creatinine is 3.2 on admission, at 3.1 today. Urinalysis showed 2+ proteinuria but no hematuria and no pyuria. PTH is somewhat elevated. Vitamin D is slightly low. He has mild acidosis. Allergies No Known Drug Allergies Allergy (Verified 02/28/22 09:39) Unknown Home Medications: Allopurinol 100 mg PO BID 05/30/21 Apixaban [Eliquis] 2.5 mg PO BID 05/30/21 Digoxin [Lanoxin] 0.125 mg PO DAILY 05/30/21 Glimepiride [Amaryl] 2 mg PO DAILY 05/30/21 Ramipril [Altace] 10 mg PO BID 05/30/21 Simvastatin 40 mg PO BEDTIME 05/30/21 Torsemide [Demadex*] 10 mg PO DAILY 04/25/22 Carvedilol [Coreg] 12.5 mg PO BID 11/05/22 Cholecalciferol (Vitamin D3) [Vitamin D3] 125 mcg PO DAILY 11/05/22 Spironolactone [Aldactone] 25 mg PO BID 11/05/22 - Past Medical/Surgical History Diabetic: Yes -: HTN -: CABG - Social History Alcohol use: No CD- Drugs: No Place of Residence: Home Review of Systems General: Weakness Eyes: Unremarkable ENT: Unremarkable Respiratory: Unremarkable Cardiovascular: Unremarkable Gastrointestinal: Unremarkable Genitourinary: Unremarkable Musculoskeletal: Unremarkable Integumentary: Unremarkable Neurological: Weakness Lymphatics: Unremarkable Physical Examination Temp Pulse Resp BP Pulse Ox 97.9 F 52 16 141/63 H 98 11/05/22 08:00 11/05/22 08:00 11/05/22 08:00 11/05/22 08:00 11/05/22 08:00 General: Other (appears as his stated age) HEENT: Atraumatic, Normocephalic Neck: Supple, JVD not distended Respiratory: Other (symmetric chest expansion) Cardiovascular: No rubs, No murmurs Gastrointestinal: Soft and benign, No guarding Musculoskeletal: No clubbing Integumentary: No warmth Neurological: Normal tone Urinary: Other (no bladder distention) External genitalia: Deferred Rectal: Deferred Conclusions/Impression: # LISSA 2/2 prerenal state +/- ATN from prolonged prerenal Serum creatinine 3.2 on admission, at 3.1 today Urinalysis showed 2+ proteinuria but no hematuria and no pyuria PTH is somewhat elevated # 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
--- NOTE | 2022-11-05 21:47 | P.PN ---
Subjective Date of Service: 11/05/22 Chief Complaint: WEAK, FATIGUED, NOT ABLE TO WALK Subjective: Improving HE HAS DECLINED OVER A YEAR. WE HAVE TALKED ABOUT ASSISTED LIVING BUT HE DOES NOT WANT NOW. HIS FAMILY IS IN [place]. Review of Systems 10-point ROS is otherwise unremarkable General: Weakness Physical Examination - Vital Signs Temperature: 98 F Blood Pressure: 153/70 Pulse: 56 Respirations: 12 Pulse Ox (%): 99 - Physical Exam General: Oriented x3, Mild distress HEENT: Atraumatic, PERRLA, EOMI Neck: Supple, JVD not distended Respiratory: Clear to auscultation bilaterally, Normal air movement Cardiovascular: Regular rate/rhythm, Normal S1 S2 Gastrointestinal: Normal bowel sounds, No tenderness Musculoskeletal: No tenderness Integumentary: No rashes Neurological: Normal speech, Normal tone, Normal affect Lymphatics: No axilla or inguinal lymphadenopathy - Studies Medications List Reviewed: Yes Assessment And Plan - Current Problems (Diagnosis) (1) General weakness Current Visit: Yes Status: Acute Plan: HE IS DECONDITIONED BALANCE BETWEEN AKD AND CHF IS VERY FINE. HE IS SMALL DOSE OF DIURETIC TO KEEP FLUID OFF LUNGS BUT THAT AT TIMES PUSHED HIM INTO DEHYDRATION. I WILL HOLD DIURETIC AVOID IV FLUIDS DO PT REFER HIM TO SNF. CONT PT IF HE IS ABLE TO AMBULATE HE WILL GO HOME ON HOME HEALTH HE REFUSES SNIF. (2) Acute on chronic renal failure Current Visit: Yes Status: Chronic Qualifiers: Chronic kidney disease stage: stage 4 (severe) (3) A-fib Current Visit: Yes Status: Chronic Plan: CONT ELIQUIS RATE CONTROLLED. Qualifiers: Atrial fibrillation type: longstanding persistent Qualified Code(s): I48.11 - Longstanding persistent atrial fibrillation (4) CLL (chronic lymphocytic leukemia) Current Visit: Yes Status: Chronic Plan: HIS BASLINE LEUKOCYTOSIS IS ABOUT 20K. THERE ARE NO CHANGES AND NO NEED OF BONE MARROW BIOPSY HIS OTHER PROBLEMS ARE MUCH MORE LIFE THREATENING THAN THIS. (5) Diabetes mellitus due to underlying condition with chronic kidney disease on chronic dialysis Current Visit: Yes Status: Acute (6) Debilitated Current Visit: Yes Status: Chronic Plan: I HAVE TALKED TO HIM ABOUT FACILITY LIKE ASSISTED LIVING THAN HOME FOR A WHILE. HE UNDERSTANDS. DAUGHTER IS AT BEDSIDE AND SHE LIVES IN [place]. SHE UNDERSTANDS.
[2022-11-06 05:54] LABS: Potassium 3.8 mEq/L (3.5-5.1)
[2022-11-06 05:59] LABS: Ferritin 478.2 ng/mL (26-388); Magnesium 1.6 mg/dL (1.6-2.4); Phosphorus 3.1 mg/dL (2.5-4.9)
[2022-11-06 06:38] LABS: Absolute Lymphocytes (CBC) 10.4 K/uL (0.7-4.9); Lymphocytes % 71.2 % (15.3-44.8); MPV 9.3 fL (7.6-11.3); RBC Red Blood Cell Count 2.92 M/uL (4.33-5.43)
[2022-11-06 06:39] LABS: MCV 94.9 fL (80-100)
[2022-11-06 06:40] LABS: Hematocrit 27.7 % (39.6-49.0)
[2022-11-06 08:36] LABS: Platelet Estimate ADEQ
[2022-11-06 08:37] LABS: Blood Morphology Comment NOT SEEN (NOT SEEN)
[2022-11-06] MEDS ORDERED: ramipriL 5 MG CAP PO SCH (09:00)
--- NOTE | 2022-11-06 09:07 | RAD REPORT ---
EXAM DESCRIPTION: US - Renal Ultrasound-Complete - 11/05/2022 11:54 pm CLINICAL HISTORY: Acute renal failure. Chronic renal disease. COMPARISON: 2021 FINDINGS: The right kidney measures 10 cm with an increased echotexture. There may be minimal perire nal fluid The left kidney measures 11 cm with an increased echotexture. 9 millimeters cyst Small bilateral renal calculi Hydronephrosis is not seen. No gross abnormality of bladder is noted IMPRESSION: Increased renal echotexture consistent with parenchymal disease Small nonobstructing bilateral renal calculi No hydronephrosis
[2022-11-06] MEDS: allopurinoL 100 MG TAB PO SCH ×2 (11:29→20:33)
[2022-11-06] MEDS: GLIMEPIRIDE 2 MG TABLET PO SCH (11:29)
[2022-11-06] MEDS: APIXABAN 2.5 MG TABLET PO SCH ×2 (11:29→20:33)
[2022-11-06] MEDS: DIGOXIN 0.125 MG TABLET PO SCH (11:29)
[2022-11-06] MEDS: carvediloL 12.5 MG TAB PO SCH ×2 (11:29→20:33)
[2022-11-06] MEDS: VITAMIN D 5,000 UNIT CAP PO SCH (11:29)
--- NOTE | 2022-11-06 12:18 | RAD REPORT ---
EXAM DESCRIPTION: US - Abdomen Pelvis Scan US - 11/06/2022 11:08 am CLINICAL HISTORY: Hypertension COMPARISON: 2018 FINDINGS: The velocity of the right renal artery 132 centimeters/second. Right renal artery /aorta ratio 1.7 The velocity of the left renal artery 79 centimeters/second. Left renal artery/aorta ratio 1 Right kidney 10 centimeters increased echotexture Left kidney 11 centimeters increased echotexture Small bilateral renal calculi No hydronephrosis IMPRESSION: No sonographic evidence of renal arterial stenosis
--- NOTE | 2022-11-06 15:43 | P.PN ---
Subjective Date of Service: 11/06/22 Chief Complaint: WEAK, FATIGUED, NOT ABLE TO WALK Subjective: Other (No complaints of dysuria or flank pain.) Physical Examination - Vital Signs Temperature: 98.5 F Blood Pressure: 142/70 Pulse: 67 Respirations: 16 Pulse Ox (%): 99 - Physical Exam General: Other (Chronically ill appearing) HEENT: Atraumatic, Normocephalic Neck: Supple Respiratory: Other (symmetric chest expansion) Cardiovascular: No rubs, No murmurs Gastrointestinal: Soft and benign Musculoskeletal: No clubbing Integumentary: No warmth Neurological: Normal tone Urinary: Other (no Franco) External genitalia: Deferred Rectal: Deferred - Studies Medications List Reviewed: Yes Assessment And Plan - Plan # LISSA 2/2 prerenal state +/- ATN from prolonged prerenal + urinary retention Serum creatinine 3.2 on admission, remains plateaued Urinalysis showed 2+ proteinuria but no hematuria and no pyuria Urine chem non-prerenal, +subnephrotic proteinuria PTH is somewhat elevated PVR bladder scan +urinary retention today. Insert franco. 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
--- NOTE | 2022-11-06 17:13 | RAD REPORT ---
EXAM DESCRIPTION: US - Urinary Bladder - 11/06/2022 5:04 pm CLINICAL HISTORY: assess post void urine volume Pelvic pain COMPARISON: Urinary Bladder dated 04/27/2021 TECHNIQUE: Real-time sonographic evaluation of the urinary bladder with pre and postvoid volume pola urements was performed. FINDINGS: Prevoid bladder volume 490 mL. Postvoid bladder volume 286 mL. No bladder mass or ureteroc bipin. IMPRESSION: Significant postvoid residual noted.
[2022-11-06 17:26] LABS: UR PROTEIN 227.3 mg/dL (<11.9); Urine Protein/Creatinine Ratio 2.77 ratio (<0.15)
[2022-11-06] MEDS: NA CHLORIDE 0.9% 1,000 ML IV SCH (19:07)
[2022-11-06] MEDS ORDERED: ATORVASTATIN 20 MG TAB PO SCH (21:00)
--- NOTE | 2022-11-06 21:24 | P.PN ---
Subjective Date of Service: 11/06/22 Chief Complaint: STRONGER. Subjective: Improving HE HAS DECLINED OVER A YEAR. WE HAVE TALKED ABOUT ASSISTED LIVING BUT HE DOES NOT WANT NOW. HIS FAMILY IS IN [place]. HE IS STABLE FOR DISCHARGE I AM WAITING FOR PT TO [facility] FOR HOME [facility]. Physical Examination - Vital Signs Temperature: 97.6 F Blood Pressure: 138/61 Pulse: 63 Respirations: 18 Pulse Ox (%): 100 - Physical Exam General: Oriented x3, Mild distress HEENT: Atraumatic, PERRLA, EOMI Neck: Supple, JVD not distended Respiratory: Clear to auscultation bilaterally, Normal air movement Cardiovascular: Regular rate/rhythm, Normal S1 S2 Gastrointestinal: Normal bowel sounds, No tenderness Musculoskeletal: No tenderness Integumentary: No rashes Neurological: Normal speech, Normal tone, Normal affect Lymphatics: No axilla or inguinal lymphadenopathy - Studies Medications List Reviewed: Yes Assessment And Plan - Current Problems (Diagnosis) (1) General weakness Current Visit: Yes Status: Acute Plan: HE IS DECONDITIONED BALANCE BETWEEN AKD AND CHF IS VERY FINE. HE IS SMALL DOSE OF DIURETIC TO KEEP FLUID OFF LUNGS BUT THAT AT TIMES PUSHED HIM INTO DEHYDRATION. I WILL HOLD DIURETIC AVOID IV FLUIDS DO PT REFER HIM TO SNF. CONT PT IF HE IS ABLE TO AMBULATE HE WILL GO HOME ON HOME HEALTH HE REFUSES SNIF. HE IS READY FOR HOME HIS CONDITION IS CHRONIC. HE NEEDS TO BE ABLE TO WALK WITH PT BEFORE DC. I AM WAITING FOR THEIR NOTE. (2) Acute on chronic renal failure Current Visit: Yes Status: Chronic Qualifiers: Chronic kidney disease stage: stage 4 (severe) (3) A-fib Current Visit: Yes Status: Chronic Plan: CONT ELIQUIS RATE CONTROLLED. Qualifiers: Atrial fibrillation type: longstanding persistent Qualified Code(s): I48.11 - Longstanding persistent atrial fibrillation (4) CLL (chronic lymphocytic leukemia) Current Visit: Yes Status: Chronic Plan: HIS BASLINE LEUKOCYTOSIS IS ABOUT 20K. THERE ARE NO CHANGES AND NO NEED OF BONE MARROW BIOPSY HIS OTHER PROBLEMS ARE MUCH MORE LIFE THREATENING THAN THIS. (5) Diabetes mellitus due to underlying condition with chronic kidney disease on chronic dialysis Current Visit: Yes Status: Acute (6) Debilitated Current Visit: Yes Status: Chronic Plan: I HAVE TALKED TO HIM ABOUT FACILITY LIKE ASSISTED LIVING THAN HOME FOR A WHILE. HE UNDERSTANDS. DAUGHTER IS AT BEDSIDE AND SHE LIVES IN [place]. SHE UNDERSTANDS.
[2022-11-07 06:29] LABS: Absolute Lymphocytes (CBC) 10.9 K/uL (0.7-4.9); Hematocrit 25.4 % (39.6-49.0); Lymphocytes % 65.3 % (15.3-44.8); MPV 8.7 fL (7.6-11.3); RBC Red Blood Cell Count 2.47 M/uL (4.33-5.43)
[2022-11-07 06:39] LABS: Potassium 3.8 mEq/L (3.5-5.1)
[2022-11-07] MEDS: NA CHLORIDE 0.9% 1,000 ML IV SCH (07:20)
[2022-11-07 07:29] LABS: Blood Morphology Comment NOTED (NOT SEEN); Platelet Estimate ADEQ; White Blood Cell Scan OK (OK)
[2022-11-07 07:30] LABS: Anisocytosis 1+; Macrocytosis 1+
[2022-11-07 07:47] VITALS: TEMP 98.5
[2022-11-07 07:57] VITALS: BP 152/74
[2022-11-07 08:46] VITALS: O2SAT 98
[2022-11-07] MEDS: allopurinoL 100 MG TAB PO SCH (09:25)
[2022-11-07] MEDS: DIGOXIN 0.125 MG TABLET PO SCH (09:25)
[2022-11-07] MEDS: APIXABAN 2.5 MG TABLET PO SCH (09:25)
[2022-11-07] MEDS: GLIMEPIRIDE 2 MG TABLET PO SCH (09:25)
[2022-11-07] MEDS: carvediloL 12.5 MG TAB PO SCH (09:25)
[2022-11-07] MEDS: VITAMIN D 5,000 UNIT CAP PO SCH (09:25)
--- NOTE | 2022-11-07 21:23 | P.DS ---
Admission Date: 11/04/22 Discharge Date: 11/07/22 Disposition: NH HOME/HOME HEALTH CARE Discharge Condition: FAIR Reason for Admission: WEAK, FATIGUED, NOT ABLE TO WALK - Problems (1) General weakness Status: Acute (2) Acute on chronic renal failure Status: Chronic Qualifiers: Chronic kidney disease stage: stage 4 (severe) (3) A-fib Status: Chronic Qualifiers: Atrial fibrillation type: longstanding persistent Qualified Code(s): I48.11 - Longstanding persistent atrial fibrillation (4) CLL (chronic lymphocytic leukemia) Status: Chronic (5) Diabetes mellitus due to underlying condition with chronic kidney disease on chronic dialysis Status: Acute (6) Debilitated Status: Chronic Brief History of Present Illness: MR DEL [place]LE HAS HISTORY OF DIASTOLIC CHF, HTN, A FIB AND DM. HE ALSO HAS LAB PICTURE OF CLL BUT WITH BORDERLINE LYMPHCYTOSIS AND HIS AGE HE DOES NOT WANT ANY FURTHER EVAL AND I UNDERSTAND. HE THIS AM GOT WEAK AND WAS NOT ABLE TO WALK. HE HAS NO CHEST PAIN, FEVER OR DYSPNEA. Hospital Course: MR [place] COMES IN WEAK, HE HAD ACUTE ON CHRONIC RENAL FAILURE. HIS BASELINE CREAT IS ABOUT 2.6. DR DIANA MUKHERJEE ADDED SPIRONOLACTONE SOMETIME AGO. THIS ADMISSION CREAT IS 3.3 OR SO AND I HELD HIS DIURETICS, HELD ALTACE AND NEPHROLOIST GAVE MILD HYDRATION. HE IS HLOT BETTER AND CREAT IS BACK TO BASELINE. HE IS STABLE WITH HOME HEALTH AT NH. HE DOES NOT WANT TO GO TO ASSISTED LIVING. HE IS STABLE WITH GUARDED PROGNOSIS. FOLLOWING IS HIS LIST OF PROBLEMS: Problem List 2018 Thoracic aortic aneurysm without mention of rupture [I71.20 (441.2) 0.3] Last addressed: Never 2018 Thyroid nodule [E04.1 (241.0)] 2018 Benign hypertension [I10 (401.1)] 2018 Dyslipidemia [E78.5 (272.4)] 2018 CAD (coronary artery disease) [I25.10 (414.00)] CABG 2003 CABG 2003 2017 Elevated triglycerides with high cholesterol [E78.2 (272.2)] 2018 CHF (congestive heart failure) [I50.9 (428.0) 0.3] 2018 Carotid artery occlusion [I65.29 (433.10)] 2019 Acute gout [M10.9 (274.01)] 2019 Hyperuricemia [E79.0 (790.6)] 2019 A-fib [I48.91 (427.31) 0.3] 2019 Lymphocytosis [D72.820 (288.61)] 2019 Diabetes mellitus due to underlying condition with stage 3a chronic kidney disease [E11.22, N18.30 (250.40, 585.3) 0.3 0.07] 2021 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 DIAZ REFER TO DR. DIAZ 2022 Coronary artery disease due to type 2 diabetes mellitus [E11.59, I25.10 (250.80, 414.00) 0.3] 2022 Acute on chronic renal failure [N17.9, N18.9 (584.9, 585.9) 0.4] Vital Signs/Physical Exam: Temp Pulse Resp BP Pulse Ox 98.5 F 68 16 152/74 H 98 11/07/22 07:56 11/07/22 09:25 11/07/22 07:56 11/07/22 09:25 11/07/22 07:56 General: Oriented x3, Mild distress HEENT: Atraumatic, PERRLA, EOMI Neck: Supple, JVD not distended Respiratory: Clear to auscultation bilaterally, Normal air movement Cardiovascular: Regular rate/rhythm, Normal S1 S2 Gastrointestinal: Normal bowel sounds, No tenderness Musculoskeletal: No tenderness Integumentary: No rashes Neurological: Normal speech, Normal tone, Normal affect Lymphatics: No axilla or inguinal lymphadenopathy Laboratory Data at Discharge: WBC 16.80 thou/uL (4.3-10.9) H 11/07/22 05:49 Hgb 9.3 g/dL (13.6-17.9) L 11/07/22 05:49 Hct 25.4 % (39.6-49.0) L 11/07/22 05:49 Plt Count 223 thou/uL (152-406) 11/07/22 05:49 Sodium 146 mEq/L (136-145) H D 11/07/22 05:49 Potassium 3.8 mEq/L (3.5-5.1) 11/07/22 05:49 BUN 63 mg/dL (7-18) H 11/07/22 05:49 Creatinine 2.62 mg/dL (0.70-1.30) H 11/07/22 05:49 Glucose 58 mg/dL (74-106) L 11/07/22 05:49 Phosphorus 3.1 mg/dL (2.5-4.9) 11/06/22 03:47 Magnesium 1.6 mg/dL (1.6-2.4) 11/06/22 03:47 Home Medications: Allopurinol 100 mg PO BID 05/30/21 Apixaban [Eliquis *] 2.5 mg PO BID 05/30/21 Digoxin [Lanoxin*] 0.125 mg PO DAILY 05/30/21 Glimepiride [Amaryl*] 2 mg PO DAILY 05/30/21 Simvastatin 40 mg PO BEDTIME 05/30/21 Torsemide [Demadex*] 10 mg PO DAILY 04/25/22 Carvedilol [Coreg] 12.5 mg PO BID 11/05/22 Cholecalciferol (Vitamin D3) [Vitamin D3] 125 mcg PO DAILY 11/05/22 Followup: Roland Perez MD [Primary Care Provider] -
--- NOTE | 2022-11-08 00:54 | PN ---
Date of Progress Note: 11/07/2022 Subjective: Acute kidney injury on advanced chronic kidney disease. The patient was admitted to the hospital because of generalized weakness, fatigue, and because he was unable to walk. The patient w as found to have acute kidney injury, which is nonoliguric. He underwent a workup to rule out hydron ephrosis. Renal ultrasound did not show hydronephrosis, although the patient has increased postvoid residual volume. He denies dysuria or flank pain, hematuria. Denies urinary discomfort. Review of Systems: General: Denies fever or chills. Eyes: Denies vision changes. Ears, Nose, Mouth, and Throat: Denies sore throat. Respiratory: Denies wheezing, cough. : Denies dysuria or hematuria. Physical Examination: General: The patient appears chronically ill. HEENT: Atraumatic, normocephalic. Cardiovascular: S1, S2. No rubs, no murmurs. Abdomen: Soft, benign. Extremities: No edema. Impression And Plan: 1.Acute kidney injury secondary to prerenal azotemia, complicated by acute tubular necrosis from pro longed prerenal state and urinary retention. Serum creatinine level on admission was 3.2, has not im proved significantly. The patient has adequate p.o. fluid intake. He was encouraged to increase p.o . fluid intake and avoid nonsteroidal antiinflammatory medication. Urinalysis showed 2+ protein, but no hematuria and no pyuria. Urine chemistry showed significant proteinuria, sub nephrotic range. P TH is elevated. Postvoid residual volume bladder scan showed urinary retention. Plan is to continue IV fluids for acute kidney injury. 2.Chronic kidney disease 3B/4 secondary to diabetes mellitus, hypertension. Baseline creatinine lev el 2.1, GFR 30 as of April 2021. Monitor renal panel. Avoid nephrotoxic medication. 3.Metabolic acidosis, mild. Monitor hypertension. Continue current medication. 4.Vitamin D deficiency. Continue vitamin D replacement. 5.Secondary hyperparathyroidism. Continue vitamin D treatment. 6.Atrial fibrillation, per Primary Team. 7.Chronic lymphocytic leukemia. Follow up with Oncology. 8.Diabetes mellitus. Avoid metformin. Continue management per Primary Team. EB/MODL Voice ID: [id number] Report ID: [id number]
== END 2022-11-07 14:32 | disposition home health service (06) | DRG 683 ==
LOC: ER 11:21 → ERHOLD 16:59 → 4TH 19:12
PROVIDERS: ADMIT Internal Medicine; ATTEND Internal Medicine
DX: N17.0 Acute kidney failure with tubular necrosis (principal); C91.10 Chronic lymphocytic leukemia of B-cell type not having achieved remission; I13.0 Hypertensive heart and chronic kidney disease with heart failure and stage 1 through stage 4 chronic kidney disease, or unspecified chronic kidney disease; I50.32 Chronic diastolic (congestive) heart failure; I48.11 Longstanding persistent atrial fibrillation; E87.20 Acidosis, unspecified; N18.4 Chronic kidney disease, stage 4 (severe); E11.22 Type 2 diabetes mellitus with diabetic chronic kidney disease; N25.81 Secondary hyperparathyroidism of renal origin; E78.00 Pure hypercholesterolemia, unspecified; E55.9 Vitamin D deficiency, unspecified; I71.20 Thoracic aortic aneurysm, without rupture, unspecified; I25.10 Atherosclerotic heart disease of native coronary artery without angina pectoris; R33.9 Retention of urine, unspecified; Z95.1 Presence of aortocoronary bypass graft; Z99.2 Dependence on renal dialysis; Z79.84 Long term (current) use of oral hypoglycemic drugs; Z79.01 Long term (current) use of anticoagulants; Z79.899 Other long term (current) drug therapy; Z20.822 Contact with and (suspected) exposure to COVID-19
CPT/HCPCS: 36415; 51702; 71045; 76770; 76857; 80048; 81001; 82306; 82550; 82570; 82728; 82947; 83540; 83550; 83735; 83880; 83935; 83970; 84100; 84132; 84156; 84300; 85025; 87804; 87811; 93005; 93975; 96360; 97110; 97116; 97161; 97530; 99285; J7030